=== PATIENT | female | born 1955 | race Caucasian/White ===

== ENCOUNTER 2020-09-09 11:05 | Inpatient (IN) | payer OTHER, SELFPAY ==
--- NOTE | ~2020-09-09 | CT_ITS ---
EXAMINATION: CT HEAD WITHOUT CONTRAST CLINICAL INFORMATION: Elevated blood pressure COMPARISON: None TECHNIQUE: Contiguous axial imaging was performed from the skull base to vertex without intravenous administration of contrast. Coronal and sagittal reformatted images are performed at CT scanner. This CT examination was performed using dose optimization techniques as appropriate, variously including the following: *Automated exposure control *Adjustment of mA and/or kV according to patient size (this includes techniques or standardized protocols for targeted exams where dose is matched to indication/reason for exam; i.e. extremities or head) *Use of iterative reconstruction technique DLP: 637 mGy-cm FINDINGS: There is no evidence of acute intracranial hemorrhage or territorial infarction. No abnormal mass effect or midline shift is seen. [place] to white matter differentiation is well preserved. No extra-axial fluid collections are identified. There is age-appropriate atrophy with prominence of the ventricles and the sulci and hypodensity of the periventricular white matter due to chronic small vessel ischemic disease. There are vascular calcifications of the internal carotid arteries bilaterally. The osseous structures and soft tissues are normal. The mastoid air cells and visualized portions of the paranasal sinuses are well aerated. CT/CT head/brain wo con IMPRESSION: No acute intracranial pathology.
[2020-09-09 11:19] VITALS: BP 186/114; PULSE 86; RESP 22; TEMP 37.1; O2SAT 98; BMI 19.6
[2020-09-09 11:53] LABS: MANUAL DIFF FLAG NO
[2020-09-09 11:56] LABS: Basophils Percent Auto 0.2 % (0-2); Eosinophils Percent Auto 0.4 % (0-4); Hematocrit 33.7 % (37-47); Hemoglobin 11.7 g/dl (12.0-16.0); Imm Gran Abs Auto 0.04 X10*3/uL (0.00-0.03); Imm Gran Pct Auto 0.4 % (0.0-0.4); Lymphocytes Absolute Auto 1.9 X10*3/uL (1.2-4.9); Lymphocytes Percent Auto 18.8 % (20-40); Mean Corpuscular HGB Conc 34.7 g/dl (31.0-35.0); Mean Corpuscular Hemoglobin 36.4 pg (27.0-33.0); Mean Platelet Volume 7.8 fL (9.4-12.3); Monocytes Absolute Auto 0.5 X10*3/uL (0.1-1.2); Monocytes Percent Auto 5.1 % (2-11); Neutrophils Absolute Auto 7.8 X10*3/uL (2.0-8.3); Neutrophils Percent Auto 75.1 % (45-73); Platelet Count 305 X10*3/uL (160-400); Red Blood Count 3.21 X10*6/uL (4.20-5.50); Red Cell Distribution Width 12.3 % (11.0-16.0); White Blood Count 10.3 X10*3/uL (4.8-10.8)
--- NOTE | 2020-09-09 12:10 | PC.NURSE ---
Spoke with patient's sister Nighat Olea - . Per Nighat, she brought the PT to the ED today after she was alerted from friends that the PT was talking about commiting suicide. Nighat states pt will be homeless tomorrow, and had a suicide attempt on august 06 where she ran her car in a closed garage. Nighat states that the patient chronically drinks too much alcohol, but unsure of how much patient drinks.
[2020-09-09 12:21] LABS: Ethanol 56 mg/dL
[2020-09-09 12:23] LABS: Alanine Aminotransferase 13 U/L (0-31); Albumin Level 4.7 g/dL (3.5-5.0); Alkaline Phosphatase 88 U/L (39-117); Anion Gap 16 (12-20); Aspartate Amino Transferase 24 U/L (5-31); Bilirubin Direct 0.2 mg/dL (0.0-0.5); Bilirubin Total 0.4 mg/dL (0.0-1.0); Blood Urea Nitrogen 10 mg/dL (9-16); Calcium 9.9 mg/dL (8.4-10.2); Carbon Dioxide 29 mmol/L (22-29); Chloride 92 mmol/L (96-108); Creatinine Clr Calc Pharmacy 72.7; Estimated Glomerular Filt Rate > 60; Glucose Random 89 mg/dL (60-115); Potassium 5.3 mmol/L (3.3-5.1); Sodium 132 mmol/L (135-145); Total Protein 7.7 g/dL (6.5-8.0)
[2020-09-09 13:15] LABS: Glucose Urine UA NEG (NEG); Leukocyte Esterase Urine NEG (NEG); Nitrite Urine NEG (NEG); Urine Blood NEG (NEG); Urine Ketones NEG (NEG); Urine Protein NEG (NEG-TRACE)
[2020-09-09 13:18] LABS: Appearance Urine CLEAR; Color Urine YELLOW
--- NOTE | 2020-09-09 13:33 | ED_ITS ---
HPI - Psych General Chief Complaint: Psychiatric Symptoms Stated Complaint: crisis Time Seen by Provider: 09/09/20 13:52 Source: patient Mode of arrival: ambulatory Limitations: no limitations History of Present Illness HPI Narrative: Patient presents to ED for depression. Patient brought in by sister due to patient being severely depressed and consistently crying. Patient has suicide attempt 2 weeks ago. Patient admits to trying to by running the car in the garage 2 weeks ago. Patient states she is compliant with her psych medication Related Data Home Medications Medication Instructions Recorded Confirmed fluoxetine 60 mg PO DAILY 09/09/20 09/09/20 omeprazole 40 mg PO DAILY 09/09/20 09/09/20 Allergies Allergy/AdvReac Type Severity Reaction Status Date / Time No Known Allergies Allergy Verified 09/09/20 11:37 Review of Systems Review of Systems: Yes all other systems are reviewed and are negative Constitutional: Constitutional: Reports as per HPI and Reports no additional constitutional complaints Eyes: Eyes: Reports as per HPI and Reports no additional eye complaints ENT: Reports system reviewed and no additional complaints, except as documented and Reports as per HPI Cardiovascular: Cardiovascular: Reports as per HPI and Reports no additional cardiovascular complaints Respiratory: Respiratory: Reports as per HPI and Reports no additional respiratory complaints Gastrointestinal: Gastrointestinal: Reports as per HPI and Reports no additional gastrointestinal complaints Genitourinary: Genitourinary: Reports no additional female genitourinary complaints and Reports as per HPI Musculoskeletal: Musculoskeletal: Reports no additional musculoskeletal complaints and Reports as per HPI Neurologic: Reports system reviewed and no additional complaints, except as documented and Reports as per HPI [facility] Social History Social History Advance Directives: No Advance Directives Information Provided: No Physical Exam Vital Signs: Vital Signs: Last Vital Signs Temp 98.7 F 09/09/20 11:19 Pulse 90 09/09/20 15:05 Resp 22 H 09/09/20 14:00 BP 116/77 09/09/20 15:05 Pulse Ox 98 09/09/20 11:19 Body Mass Index 19.6 Const: Other: In tears. Depressed General: cooperative, healthy appearing, comfortable, no acute distress, well developed, alert and awake Orientation/consciousness: patient oriented x3 HENMT: Head: Yes normal to inspection, Yes No palpable skull fracture present, Yes normocephalic, Yes atraumatic and No abrasion Eyes: General: appearance normal, both eyes and all related structures Neck: Neck: Yes normal visual inspection, Yes full ROM, Yes no lymphadenopathy, Yes no meningeal signs, Yes trachea midline, Yes supple and No tender Chest: Chest palpation & inspection: normal inspection of the chest and normal palpation of entire chest wall Resp: Effort & Inspection: normal respiratory effort and able to speak in complete sentences Auscultation: clear to auscultation bilaterally Cardio: Jugular venous distension: no JVD Heart sounds: S1 normal heart sound present and S2 normal heart sound present GI: Inspection: Yes normal to inspection and No abdominal wall ecchymosis Palpation (GI): Soft to palpation, not firm, nontender, no guarding and not rigid : General: No CVA tenderness and Yes no CVA tenderness Back/Spine/Pelvis: Back: no CVA tenderness, No CVA tenderness and No back tenderness Skin: General skin exam: no rashes or lesions noted and elasticity normal Neuro: General: patient oriented x3, no meningeal signs and CN's II-XI intact bilaterally Cranial nerves: Yes CN's II-XII intact bilaterally Extrem: General: Yes normal to inspection and Yes full ROM Psych: Appearance: grossly normal, well kempt and not disheveled Thought content: Suicidality present and Depressive thoughts present Course Course Course Narrative: Patient will have medical evaluation and be evaluated by N Reevaluation(s) Reevaluation #1: Patient blood pressure improved after receiving clonidine. Patient has history of high blood pressure but has not been taking her amlodopine since last year. Patient is asymptomatic. Negative for any neuro deficit. Troponin negative. Her EKG negative for STEMI and negative for signs of severe hyperkalemia. Potassium 5.3 with normal BUN creatinine. Most likely hemolyzed. No need for treatment of hyperkalemia. Discuss this with Dr. Medina who agreed. MDM - Psych MDM Narrative Medical decision making narrative: Depressed Lab Data Result diagrams: 09/09/20 11:49 09/09/20 11:49 Labs: Lab Results 09/09/20 09/09/20 09/09/20 Range/Units 11:49 11:49 11:49 WBC 10.3 (4.8-10.8) X10*3/uL RBC 3.21 L (4.20-5.50) X10*6/uL Hgb 11.7 L (12.0-16.0) g/dl Hct 33.7 L (37-47) % MCV 105.0 H (80-98) fL MCH 36.4 H (27.0-33.0) pg MCHC 34.7 (31.0-35.0) g/dl RDW 12.3 (11.0-16.0) % Plt Count 305 (160-400) X10*3/uL MPV 7.8 L (9.4-12.3) fL Immature Gran % (Auto) 0.4 (0.0-0.4) % Neut % (Auto) 75.1 H (45-73) % Lymph % (Auto) 18.8 L (20-40) % [place] % (Auto) 5.1 (2-11) % Eos % (Auto) 0.4 (0-4) % Baso % (Auto) 0.2 (0-2) % Lymph # (Auto) 1.9 (1.2-4.9) X10*3/uL [place] # (Auto) 0.5 (0.1-1.2) X10*3/uL Eos # (Auto) 0.0 (0.0-0.4) X10*3/uL Baso # (Auto) 0.0 (0.0-0.2) X10*3/uL Abs Immat Gran (auto) 0.04 H (0.00-0.03) X10*3/uL Absolute Neuts (auto) 7.8 (2.0-8.3) X10*3/uL Absolute Nucleated RBC 0.000 (0.0-0.012) X10*3/uL Nucleated RBC % (auto) 0.0 (0.0-0.2) /100WBC Sodium 132 L (135-145) mmol/L Potassium 5.3 H (3.3-5.1) mmol/L Chloride 92 L (96-108) mmol/L Carbon Dioxide 29 (22-29) mmol/L Anion Gap 16 (12-20) BUN 10 (9-16) mg/dL Creatinine 0.59 (0.5-1.4) mg/dL Estim Creat Clear Calc 72.7 Estimated GFR > 60 Random Glucose 89 (60-115) mg/dL Calcium 9.9 (8.4-10.2) mg/dL Total Bilirubin 0.4 (0.0-1.0) mg/dL Direct Bilirubin 0.2 (0.0-0.5) mg/dL AST 24 (5-31) U/L ALT 13 (0-31) U/L Alkaline Phosphatase 88 (39-117) U/L Troponin I High Sens (<3.5-17.0) ng/L Total Protein 7.7 (6.5-8.0) g/dL Albumin 4.7 (3.5-5.0) g/dL Urine Color Urine Appearance Urine pH (5.0-8.0) Ur Specific [place] (1.005-1.025) Urine Protein (NEG-TRACE) MG/DL Urine Glucose (UA) (NEG) MG/DL Urine Ketones (NEG) MG/DL Urine Blood (NEG) Urine Nitrite (NEG) Ur Leukocyte Esterase (NEG) Urine Opiates Screen (Not Detect) Ur Barbiturates Screen (Not Detect) Ur Phencyclidine Scrn (Not Detect) Ur Amphetamines Screen (Not Detect) U Benzodiazepines Scrn (Not Detect) Urine Cocaine Screen (Not Detect) U Marijuana (THC) Screen (Not Detect) Ethyl Alcohol 56 mg/dL 09/09/20 09/09/20 09/09/20 Range/Units 13:01 13:01 14:24 WBC (4.8-10.8) X10*3/uL RBC (4.20-5.50) X10*6/uL Hgb (12.0-16.0) g/dl Hct (37-47) % MCV (80-98) fL MCH (27.0-33.0) pg MCHC (31.0-35.0) g/dl RDW (11.0-16.0) % Plt Count (160-400) X10*3/uL MPV (9.4-12.3) fL Immature Gran % (Auto) (0.0-0.4) % Neut % (Auto) (45-73) % Lymph % (Auto) (20-40) % [place] % (Auto) (2-11) % Eos % (Auto) (0-4) % Baso % (Auto) (0-2) % Lymph # (Auto) (1.2-4.9) X10*3/uL [place] # (Auto) (0.1-1.2) X10*3/uL Eos # (Auto) (0.0-0.4) X10*3/uL Baso # (Auto) (0.0-0.2) X10*3/uL Abs Immat Gran (auto) (0.00-0.03) X10*3/uL Absolute Neuts (auto) (2.0-8.3) X10*3/uL Absolute Nucleated RBC (0.0-0.012) X10*3/uL Nucleated RBC % (auto) (0.0-0.2) /100WBC Sodium (135-145) mmol/L Potassium (3.3-5.1) mmol/L Chloride (96-108) mmol/L Carbon Dioxide (22-29) mmol/L Anion Gap (12-20) BUN (9-16) mg/dL Creatinine (0.5-1.4) mg/dL Estim Creat Clear Calc Estimated GFR Random Glucose (60-115) mg/dL Calcium (8.4-10.2) mg/dL Total Bilirubin (0.0-1.0) mg/dL Direct Bilirubin (0.0-0.5) mg/dL AST (5-31) U/L ALT (0-31) U/L Alkaline Phosphatase (39-117) U/L Troponin I High Sens < 3.5 (<3.5-17.0) ng/L Total Protein (6.5-8.0) g/dL Albumin (3.5-5.0) g/dL Urine Color YELLOW Urine Appearance CLEAR Urine pH 7.0 (5.0-8.0) Ur Specific [place] 1.010 (1.005-1.025) Urine Protein NEG (NEG-TRACE) MG/DL Urine Glucose (UA) NEG (NEG) MG/DL Urine Ketones NEG (NEG) MG/DL Urine Blood NEG (NEG) Urine Nitrite NEG (NEG) Ur Leukocyte Esterase NEG (NEG) Urine Opiates Screen Not Detected (Not Detect) Ur Barbiturates Screen Not Detected (Not Detect) Ur Phencyclidine Scrn Not Detected (Not Detect) Ur Amphetamines Screen Not Detected (Not Detect) U Benzodiazepines Scrn POSITIVE H (Not Detect) Urine Cocaine Screen Not Detected (Not Detect) U Marijuana (THC) Screen Not Detected (Not Detect) Ethyl Alcohol mg/dL Discharge Plan Discharge Prescriptions: No Action omeprazole 40 mg Capsule,Delayed Release(Dr/Ec) 40 mg PO DAILY RF: 0 fluoxetine 60 mg Tablet 60 mg PO DAILY RF: 0
--- NOTE | 2020-09-09 13:36 | ECG_ITS ---
Test Reason : ELEVATED POTASSIUM Blood Pressure : / mmHG Vent. Rate : 082 BPM Atrial Rate : 082 BPM P-R Int : 156 ms QRS Dur : 076 ms QT Int : 394 ms P-R-T Axes : 063 035 061 degrees QTc Int : 460 ms Normal sinus rhythm Possible Left atrial enlargement Borderline ECG No previous ECGs available Referred By: Vernon Echeverria Electronically Signed By:
[2020-09-09 13:40] LABS: Amphetamine Screen Urine Not Detected (Not Detect); Barbiturates, Urine Not Detected (Not Detect); Benzodiazepines Screen Urine POSITIVE (Not Detect); Cannabinoid Screen Urine Not Detected (Not Detect); Cocaine Screen Urine Not Detected (Not Detect); Opiate Screen Urine Not Detected (Not Detect); Phencyclidine Screen Urine Not Detected (Not Detect)
[2020-09-09 14:00] VITALS: BP 215/107; PULSE 71; RESP 22
[2020-09-09 14:13] VITALS: BP 215/107; PULSE 71
[2020-09-09] MEDS: cloNIDine HCL 0.2 MG TABLET PO (14:13)
--- NOTE | 2020-09-09 14:29 | PC.NURSE ---
Pt's blood pressure 215/107. PA January aware. New order for 0.2mg Clonidine ordered for patient. New order for troponin drawn. Pt tearful, denies chest discomfort at this time. Will continue to monitor.
[2020-09-09 15:00] LABS: Troponin-I High Sensitivity < 3.5 ng/L (<3.5-17.0)
[2020-09-09 15:05] VITALS: BP 116/77; PULSE 90
[2020-09-09 18:47] VITALS: BP 132/83; PULSE 76; RESP 15; TEMP 36.9; O2SAT 100
--- NOTE | 2020-09-09 19:32 | PC.NURSE ---
Report received. PT is sitting in her room visiting with her sister. PT is calm but tearful. PT waiting to be seen by N.
--- NOTE | 2020-09-09 22:10 | PC.NURSE ---
PT's sister came to visit and wait for BHN evaluation. BHN did not arrive at expected time. Sister left a list with this nurse that track the events and behaviors of the PT over the past few months. List was placed in PT's file.
[2020-09-10 02:20] VITALS: BP 127/82; PULSE 75; RESP 18; TEMP 35.7; O2SAT 100
[2020-09-10 02:21] LABS: COVID-19 Test Negative (Negative)
[2020-09-10] MEDS: Omeprazole 40 MG CAPSULE.DR PO (06:18)
--- NOTE | 2020-09-10 07:19 | PC.NURSE ---
Report received from Erich SKINNER. Pt ambulatory, flat affect, asking about breakfast. In-pt bedsearch.
[2020-09-10 08:14] VITALS: BP 143/92; PULSE 89; RESP 18; TEMP 36.8; O2SAT 100
[2020-09-10] MEDS: FLUoxetine HCl 20 MG CAPSULE 60 MG PO (10:12)
--- NOTE | 2020-09-10 10:14 | PC.NURSE ---
Pt medicated as charted with morning med. This RN spoke with pt's sister Nighat with the pt's permission. Nighat updated on plan of care phone number , requesting to be called with updates.
[2020-09-10] MEDS: Acetaminophen 325 MG TABLET 975 MG PO (17:46)
[2020-09-10] MEDS: hydrOXYzine HCL 25 MG TABLET PO (20:49)
[2020-09-10] MEDS: traZODone HCL 50 MG TABLET PO (20:49)
[2020-09-10 21:48] VITALS: BP 136/84; PULSE 77; RESP 16; TEMP 36.8; O2SAT 100
--- NOTE | 2020-09-10 21:51 | PC.ADMIT ---
Pt is a 65 year old, , Tajik speaking female who appears her stated age. She presented to [facility] secondary to endorsing suicidal ideation to her family. Pt reported that she had a suicide attempt a few weeks ago, in which she sat in her garage with her car running to obtain carbon monoxide poisoning. Pt reports she is extremely depressed and stated she has been having suicidal thoughts. Pt has been recently evicted from her home and is financially unstable. Pt arrived at approx 1955 on a CV status. Pt is Covid negative UTOX positive for Benzos, pt BAL was 56. Pt on CIWA and scoring low. Pt denies withdrawals. Pt denies history of detox admissions or previous psych admissions. Pt has no current outpatient community services. Pt denies traums history. In crisis evaluation pt's brother committed suicide 20 years ago. Pt is aware of her suicide attempt and is happy she survived. Pt denies SI/HI, AH/VH. Pt contracts for safety. 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 Pt on 5 min checks with unlocked bathroom. pt was cooperative with admission and nursing assessment. Pt is tearful and appears depressed. Pt affect flat and appears withdrawn throughout assessment. Pt skin is fragile and has bruising on both upper extremities. Pt reports a double mastectomy 20 years ago. BP left arm only. Pt was very anxious upon arrival to unit blood pressure was elevated. Pt given PRN Atarax and Trazodone and BP was rechecked and was within normal limits. Start treatment plan and monitor for safety.
--- NOTE | 2020-09-11 | ECG_ITS ---
Test Reason : QTC PROLONGATION Blood Pressure : / mmHG Vent. Rate : 088 BPM Atrial Rate : 088 BPM P-R Int : 208 ms QRS Dur : 078 ms QT Int : 370 ms P-R-T Axes : 044 039 062 degrees QTc Int : 447 ms Normal sinus rhythm Normal ECG When compared with ECG of 09-SEP-2020 13:58, Nonspecific T wave abnormality no longer evident in Inferior leads T wave amplitude has increased in Anterior leads Referred By: Catalina Thomas Electronically Signed By:RYAN BOCANEGRA MD
[2020-09-11 06:16] VITALS: BP 124/83; PULSE 79; RESP 18; TEMP 36.3; O2SAT 100
[2020-09-11] MEDS: Omeprazole 40 MG CAPSULE.DR PO (06:36)
[2020-09-11] MEDS: FLUoxetine HCl 20 MG CAPSULE 60 MG PO (09:45)
[2020-09-11] MEDS: LORazepam 1 MG TABLET PO ×2 (09:59→14:47)
[2020-09-11 14:14] LABS: Alanine Aminotransferase 15 U/L (0-31); Albumin Level 4.5 g/dL (3.5-5.0); Alkaline Phosphatase 85 U/L (39-117); Anion Gap 18 (12-20); Aspartate Amino Transferase 34 U/L (5-31); Bilirubin Total 0.4 mg/dL (0.0-1.0); Blood Urea Nitrogen 11 mg/dL (9-16); Calcium 9.8 mg/dL (8.4-10.2); Carbon Dioxide 24 mmol/L (22-29); Chloride 95 mmol/L (96-108); Creatinine Clr Calc Pharmacy 63.9; Estimated Glomerular Filt Rate > 60; Glucose Random 108 mg/dL (60-115); Sodium 131 mmol/L (135-145); Total Protein 7.8 g/dL (6.5-8.0)
[2020-09-11] MEDS: Sodium Polystyrene Sulfon/Sorb 15 GM/60 ML ORAL.SUSP 30 GM PO (14:42)
[2020-09-11 15:51] LABS: Magnesium 1.9 mg/dL (1.6-2.6); Potassium 4.6 mmol/L (3.3-5.1)
[2020-09-11] MEDS: Acetaminophen 325 MG TABLET 650 MG PO (15:53)
[2020-09-11 16:36] VITALS: BP 126/80; PULSE 90; RESP 16; TEMP 36.8; O2SAT 97
[2020-09-11] MEDS: Folic Acid 1 MG TABLET PO (19:58)
[2020-09-11] MEDS: Thiamine HCL 100 MG TABLET PO (19:58)
--- NOTE | 2020-09-11 20:20 | P.HPPS_ITS ---
HPI Chief Complaint: SUICIDAL IDEATION Sources of Information: patient interviewed, chart reviewed and crisis/core team assessment reviewed HPI Subjective Notes: Conditional Voluntary Narrative: Ms. Olea is a 65 year-old woman with hx of MDD and alcohol dependence. She was brought to [place] ED by sister on 09/09/2020 due to increase depression, suicidal ideation, hopeless/helpeless in context of psychosocial stressors including not having stable place to live. In the ED, her utox was positive for benzodiazepines. Her BAL was 56. Ms. Olea was recently discharged from [facility] in 07/2020 after suicide attempt with carbon monoxide. Pt reports that suicide attempt was impulsive, that she went to her car and turn it on but quickly regret it but couldn't stop the car so she pulled back and broke garage door. Per crisis report, pt had sent messages to sister on 08/24, 09/07 and 09/09 reporting suicidal ideation. On the unit, pt denies alcohol use or that it is a problem, even though she was recently sectioned 35 in April of 2020 and per sister, pt has extensive alcohol history since pt was 18. Pt reports that for 5 years she lived in apartment that she rented but was asked to leave. She can't explain reasons for eviction from apartment. She reports she had roommate at the time and she thinks roommate lied about her to her landlord. Pt on unit states that she is depressed, hopeless but denies suicidal ideation. She reports her main concern at this time is housing. She reports fair sleep. She reports fair appetite. She appears somewhat suspicious about a number of people in her life including most of her siblings, except for one sister, her former roommate, who pt reports thinks put something in her car/gas to brake it. Pt appears with some memory difficulties as she struggled with timeline of events leading to this admission and previous one. She denies hx of VH/AH. Past Psychiatric History: Inpatient: [place] 07/2020 OP: none Past medication trial: prozavictor hugo Suicide attempt: attempted carbon monoxide poisoning 07/2020 but stopped. Medical Evaluation Reviewed: Yes [facility] Surgical History (Updated 09/10/20 @ 20:30 by Joy Allen RN) H/O bilateral mastectomy Family History: brother of suicide Social History: born and raise in [place]. She is , no children. She has been on disability for more than 20 years apparently due to osteoarthritis. Pt has MA in education. 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 Substance History: Alcohol since age 18 Trauma History: pt and family denied Diagnostics Vital Signs (24Hr): Vital Signs - 24 hr 09/10/20 21:48 09/11/20 06:16 09/11/20 16:36 Temperature 98.2 F 97.4 F 98.2 F Pulse Rate 77 79 90 Respiratory Rate 16 18 16 Blood Pressure 136/84 124/83 126/80 Pulse Oximetry 100 100 97 Body Mass Index 19.6 Labs Results: 09/09/20 11:49 09/11/20 15:11 Labs: Laboratory Results - last 48 hr 09/10/20 09/11/20 09/11/20 01:59 13:15 15:11 Sodium 131 L Potassium 6.0 H* 4.6 D Chloride 95 L Carbon Dioxide 24 Anion Gap 18 BUN 11 Creatinine 0.67 Estim Creat Clear Calc 63.9 Estimated GFR > 60 Random Glucose 108 Calcium 9.8 Magnesium 1.9 Total Bilirubin 0.4 AST 34 H D ALT 15 Alkaline Phosphatase 85 Total Protein 7.8 Albumin 4.5 COVID-19 (MARY) Negative COVID-19 Clin Com See Note Imaging Radiology Impressions: ITS Impressions Head CT 09/09/20 15:19 IMPRESSION: No acute intracranial pathology. Meds/Allergies Meds Home Medications Acetaminophen (Acetaminophen 325 Mg Tablet) 650 mg PO Q6H PRN PRN Reason: Headache/Pain Mild Scale (1-3) Last Admin: 09/11/20 15:53 Dose: 650 mg Documented by: Al Hydroxide/Mg Hydroxide (Magnesium Hydrox/Alum Hydrox 30 Ml Oral.Susp) 30 ml PO Q6H PRN PRN Reason: Heartburn/Nausea Fluoxetine HCl (Fluoxetine Hcl 20 Mg Capsule) 40 mg PO DAILY [facility] Last Admin: 09/12/20 09:30 Dose: 40 mg Documented by: Folic Acid (Folic Acid 1 Mg Tablet) 1 mg PO DAILY [facility] Last Admin: 09/12/20 09:30 Dose: 1 mg Documented by: Gabapentin (Gabapentin 300 Mg Capsule) 300 mg PO TID [facility] Last Admin: 09/12/20 16:11 Dose: 300 mg Documented by: Hydroxyzine HCl (Hydroxyzine Hcl 25 Mg Tablet) 25 mg PO BEDTIME PRN PRN Reason: Anxiety Last Admin: 09/10/20 20:49 Dose: 25 mg Documented by: Loperamide HCl (Loperamide Hcl 2 Mg Capsule) 2 mg PO Q4H PRN PRN Reason: Loose Stool Last Admin: 09/11/20 21:36 Dose: 2 mg Documented by: Lorazepam (Lorazepam 1 Mg Tablet) 1 mg PO Q4H PRN PRN Reason: Alcohol Withdrawal Last Admin: 09/12/20 09:30 Dose: 1 mg Documented by: Magnesium Hydroxide (Milk Of Magnesia 30 Ml Oral.Susp) 30 ml PO DAILY PRN PRN Reason: Constipation Omeprazole (Omeprazole 40 Mg Capsule.Dr) 40 mg PO DAILY@0630 [facility] Last Admin: 09/12/20 06:39 Dose: 40 mg Documented by: Thiamine HCl (Thiamine Hcl 100 Mg Tablet) 100 mg PO DAILY [facility] Last Admin: 09/12/20 09:30 Dose: 100 mg Documented by: Trazodone HCl (Trazodone Hcl 50 Mg Tablet) 50 mg PO BEDTIME PRN PRN Reason: Insomnia Last Admin: 09/11/20 21:33 Dose: 50 mg Documented by: Allergies Allergies Allergy/AdvReac Type Severity Reaction Status Date / Time No Known Allergies Allergy Verified 09/09/20 11:37 Mental Status Exam Mental Status Exam Narrative: Appearance: casually groomed, fair hygiene, in NAD Behavior: calm, cooperative Psychomotor: no agitation or retardation noted Speech: clear, normal rate/rhythm/volume, spontaneous TP: tangential TC: no signs of psychosis, some suspiciousness towards past roommate, wanting to find housing Mood: depressed Affect:constricted SI:denies HI:denies AH/VH:denies Delusions:some paranoia towards roommate and other family members Insight/judgment:poor x 2. Memory/cog: alert, oriented x 3. pending MOCA. Assessment & Plan Assessment & Plan (1) MDD (major depressive disorder), recurrent episode, moderate: Status: Acute Code(s): F33.1 - Major depressive disorder, recurrent, moderate Assessment and Plan: 1. We discussed possibility of switching to different antidepressant since pt has been on prozac for a long time. (2) Alcohol use disorder, moderate, dependence: Status: Acute Code(s): F10.20 - Alcohol dependence, uncomplicated Assessment and Plan: 1. Pt started on gabapentin 300mg po TID, ativan prn for symptoms of withdrawal, thiamine and folic acid. Reason for continued inpatient stay Substantial Risk for: harm to self
[2020-09-11] MEDS: Gabapentin 300 MG CAPSULE PO (21:33)
[2020-09-11] MEDS: traZODone HCL 50 MG TABLET PO (21:33)
[2020-09-11] MEDS: Loperamide HCl 2 MG CAPSULE PO (21:36)
[2020-09-12 06:00] VITALS: BP 121/78; PULSE 82; TEMP 36.2
[2020-09-12] MEDS: Omeprazole 40 MG CAPSULE.DR PO (06:39)
[2020-09-12] MEDS: FLUoxetine HCl 20 MG CAPSULE 40 MG PO (09:30)
[2020-09-12] MEDS: LORazepam 1 MG TABLET PO ×2 (09:30→22:15)
[2020-09-12] MEDS: Gabapentin 300 MG CAPSULE PO ×3 (09:30→22:15)
[2020-09-12] MEDS: Thiamine HCL 100 MG TABLET PO (09:30)
[2020-09-12] MEDS: Folic Acid 1 MG TABLET PO (09:30)
[2020-09-12 09:39] LABS: Cholesterol 263 mg/dL; HDL Cholesterol 55 mg/dL; LDL Cholesterol Calculated 189 mg/dl; Triglycerides 99 mg/dL
[2020-09-12 09:59] LABS: TSH reflex Free T4 0.94 uIU/mL (0.32-4.0)
[2020-09-12 10:13] LABS: Estimated Average Glucose 80 mg/dL; Hemoglobin A1c % 4.4 %
[2020-09-12 11:00] VITALS: BP 133/87; RESP 84
[2020-09-12 11:21] LABS: Folate > 20.0 ng/mL (> or = 4.0); Vitamin B12 291 pg/mL (200-900)
--- NOTE | 2020-09-12 16:43 | HO.PSYCHPN ---
Subjective Subjective Date of Service: 09/12/20 Reason For Visit: SUICIDAL IDEATION Subjective Notes: Conditional Voluntary Interim History: Pt reports she slept well. She reports mood stable. She denies SI/HI. She reports her main concern continues to be housing. She continues to show limited insight into extend of alcohol use. She is currently not scoring on CIWA. MOCA completed today- she scored 28/30- difficulty with serial sevens and placing hands of clock. Medication Compliance: Yes Side effects from medications: No Review of Systems Review of Systems Yes all other systems are reviewed and are negative Constitutional: Reports as per HPI and Reports no additional constitutional complaints Eyes: Reports as per HPI and Reports no additional eye complaints Reports system reviewed and no additional complaints, except as documented and Reports as per HPI Cardiovascular: Reports as per HPI, Reports no additional cardiovascular complaints, Denies chest pain, Denies syncope, Denies palpitations, Denies dyspnea and Denies dyspnea on exertion Respiratory: Reports as per HPI, Reports no additional respiratory complaints, Denies chest congestion, Denies cough, Denies dyspnea and Denies dyspnea on exertion Gastrointestinal: Reports as per HPI, Reports no additional gastrointestinal complaints, Denies constipation and Reports diarrhea Musculoskeletal: Denies no additional musculoskeletal complaints and Reports as per HPI Reports system reviewed and no additional complaints, except as documented, Reports as per HPI and Denies syncope Endocrine: Denies palpitations Mental Status Exam Mental Status Exam Narrative: Appearance: casually groomed, fair hygiene, in NAD Behavior: calm, cooperative Psychomotor: no agitation or retardation noted Speech: clear, normal rate/rhythm/volume, spontaneous TP: tangential TC: no signs of psychosis, some suspiciousness towards past roommate, wanting to find housing Mood: depressed Affect:constricted SI:denies HI:denies AH/VH:denies Delusions:some paranoia towards roommate and other family members Insight/judgment:poor x 2. Memory/cog: alert, oriented x 3. pending MOCA. Diagnostics Vital Signs (24Hr): Vital Signs - 24 hr 09/12/20 06:00 Temperature 97.2 F Pulse Rate 82 Blood Pressure 121/78 Body Mass Index 19.6 Labs Results: 09/09/20 11:49 09/11/20 15:11 Labs: Laboratory Results - last 48 hr 09/11/20 09/11/20 09/12/20 13:15 15:11 08:47 Sodium 131 L Potassium 6.0 H* 4.6 D Chloride 95 L Carbon Dioxide 24 Anion Gap 18 BUN 11 Creatinine 0.67 Estim Creat Clear Calc 63.9 Estimated GFR > 60 Random Glucose 108 Estimat Average Glucose Hemoglobin A1c % Calcium 9.8 Magnesium 1.9 Total Bilirubin 0.4 AST 34 H D ALT 15 Alkaline Phosphatase 85 Total Protein 7.8 Albumin 4.5 Triglycerides 99 Cholesterol 263 LDL Cholesterol, Calc 189 HDL Cholesterol 55 Vitamin B12 Folate TSH 09/12/20 09/12/20 09/12/20 08:47 08:47 08:47 Sodium Potassium Chloride Carbon Dioxide Anion Gap BUN Creatinine Estim Creat Clear Calc Estimated GFR Random Glucose Estimat Average Glucose 80 Hemoglobin A1c % 4.4 Calcium Magnesium Total Bilirubin AST ALT Alkaline Phosphatase Total Protein Albumin Triglycerides Cholesterol LDL Cholesterol, Calc HDL Cholesterol Vitamin B12 291 Folate > 20.0 TSH 0.94 Imaging Radiology Impressions: ITS Impressions Head CT 09/09/20 15:19 IMPRESSION: No acute intracranial pathology. Medications Medications Current Medications Generic Name Dose Route Start Last Admin Trade Name Freq PRN Reason Stop Dose Admin Acetaminophen 650 mg 09/10/20 19:32 09/11/20 15:53 Acetaminophen 325 Mg Tablet PO 650 mg Q6H PRN Administration Headache/Pain Mild Scale (1-3) Al Hydroxide/Mg Hydroxide 30 ml 09/10/20 19:32 Magnesium Hydrox/Alum Hydrox 30 Ml Oral.Susp PO Q6H PRN Heartburn/Nausea Fluoxetine HCl 40 mg 09/12/20 09:00 09/12/20 09:30 Fluoxetine Hcl 20 Mg Capsule PO 40 mg DAILY SARA Administration Folic Acid 1 mg 09/11/20 17:29 09/12/20 09:30 Folic Acid 1 Mg Tablet PO 1 mg DAILY SARA Administration Gabapentin 300 mg 09/11/20 21:00 09/12/20 16:11 Gabapentin 300 Mg Capsule PO 300 mg TID SARA Administration Hydroxyzine HCl 25 mg 09/10/20 19:32 09/10/20 20:49 Hydroxyzine Hcl 25 Mg Tablet PO 25 mg BEDTIME PRN Administration Anxiety Loperamide HCl 2 mg 09/11/20 16:39 09/11/20 21:36 Loperamide Hcl 2 Mg Capsule PO 2 mg Q4H PRN Administration Loose Stool Lorazepam 1 mg 09/10/20 22:19 09/12/20 09:30 Lorazepam 1 Mg Tablet PO 1 mg Q4H PRN Administration Alcohol Withdrawal Magnesium Hydroxide 30 ml 09/10/20 19:32 Milk Of Magnesia 30 Ml Oral.Susp PO DAILY PRN Constipation Omeprazole 40 mg 09/10/20 06:30 09/12/20 06:39 Omeprazole 40 Mg Capsule.Dr PO 40 mg DAILY@0630 SARA Administration Thiamine HCl 100 mg 09/11/20 17:30 09/12/20 09:30 Thiamine Hcl 100 Mg Tablet PO 100 mg DAILY SARA Administration Trazodone HCl 50 mg 09/10/20 19:32 09/11/20 21:33 Trazodone Hcl 50 Mg Tablet PO 50 mg BEDTIME PRN Administration Insomnia Allergies Allergies Allergy/AdvReac Type Severity Reaction Status Date / Time No Known Allergies Allergy Verified 09/09/20 11:37 Assessment & Plan Assessment & Plan (1) MDD (major depressive disorder), recurrent episode, moderate: Status: Acute Code(s): F33.1 - Major depressive disorder, recurrent, moderate Assessment and Plan: 1. We discussed possibility of switching to different antidepressant since pt has been on prozac for a long time. Pt wants to continue prozac and agrees to add abilify which could help not only to boost effect of antidepressant but some paranoid thoughts. (2) Alcohol use disorder, moderate, dependence: Status: Acute Code(s): F10.20 - Alcohol dependence, uncomplicated Assessment and Plan: 1. Pt started on gabapentin 300mg po TID, ativan prn for symptoms of withdrawal, thiamine and folic acid. Greater than 50% of the session was spent on counseling and/or coordination of care Reason for contiued inpatient stay Substantial Risk for: harm to self and inability to function
[2020-09-12] MEDS: Acetaminophen 325 MG TABLET 650 MG PO (17:12)
[2020-09-12 18:00] VITALS: BP 165/90; PULSE 87
[2020-09-12 18:13] LABS: Alanine Aminotransferase 13 U/L (0-31); Albumin Level 4.2 g/dL (3.5-5.0); Alkaline Phosphatase 81 U/L (39-117); Anion Gap 13 (12-20); Aspartate Amino Transferase 27 U/L (5-31); Bilirubin Total 0.4 mg/dL (0.0-1.0); Blood Urea Nitrogen 10 mg/dL (9-16); Calcium 9.4 mg/dL (8.4-10.2); Carbon Dioxide 28 mmol/L (22-29); Chloride 93 mmol/L (96-108); Estimated Glomerular Filt Rate > 60; Glucose Random 108 mg/dL (60-115); Potassium 4.5 mmol/L (3.3-5.1); Sodium 129 mmol/L (135-145); Total Protein 7.2 g/dL (6.5-8.0)
[2020-09-13 06:15] VITALS: BP 125/71; PULSE 70; RESP 14; TEMP 36.3; O2SAT 100
[2020-09-13] MEDS: Omeprazole 40 MG CAPSULE.DR PO (06:46)
[2020-09-13] MEDS: Thiamine HCL 100 MG TABLET PO (08:48)
[2020-09-13] MEDS: FLUoxetine HCl 20 MG CAPSULE 40 MG PO (08:48)
[2020-09-13] MEDS: Gabapentin 300 MG CAPSULE PO ×3 (08:48→20:11)
[2020-09-13] MEDS: Folic Acid 1 MG TABLET PO (08:48)
[2020-09-13 11:29] LABS: Anion Gap 9 (12-20); Carbon Dioxide 34 mmol/L (22-29); Chloride 95 mmol/L (96-108); Potassium 3.9 mmol/L (3.3-5.1); Sodium 134 mmol/L (135-145)
[2020-09-13 11:33] VITALS: BP 141/93; PULSE 82; RESP 18; TEMP 36.6; O2SAT 98
[2020-09-13] MEDS: Acetaminophen 325 MG TABLET 650 MG PO ×2 (15:32→21:41)
[2020-09-13 15:35] VITALS: BP 128/94; PULSE 86; RESP 18; TEMP 37
[2020-09-13] MEDS: traZODone HCL 50 MG TABLET PO (20:12)
[2020-09-13 20:20] VITALS: BP 140/95; PULSE 80; TEMP 37
--- NOTE | 2020-09-13 20:45 | HO.PSYCHPN ---
Subjective Subjective Date of Service: 09/13/20 Reason For Visit: SUICIDAL IDEATION Subjective Notes: Conditional Voluntary Interim History: Yamel was focused on whether she should change her fluoxetine. She was in mild alcohol WD but understates her difficutly with alcohol. Sodium was normalized at 134 Medication Compliance: Yes Side effects from medications: No Attending Groups: Intermittent Review of Systems Acute medical concerns: No Medical Review of Systems: unchanged Review of Systems Review of Systems Yes all other systems are reviewed and are negative Mental Status Exam Mental Status Exam Patient Appearance: Well Grooomed Level of Consciousness: Awake Patient Behavior: Appropriate Mood Description: Calm, Constricted and Anxious Affect Description: Anxious Patient Cognition Impaired: No Ability to Follow Directions: Fair Speech Pattern: Clear Memory Description: Intact Hallucinations: None Delusions: Not Present Thought Process: Intact Thought Content: positive for Circumstantial and positive for Preoccupation Depressive Symptoms: Increased Anxiety, Insomnia, Diff. Making Decisions, Low Self Esteem, Loss of Energy and Difficulty Concentrating Judgement: Fair Diagnostics Vital Signs (24Hr): Vital Signs - 24 hr 09/13/20 06:15 09/13/20 11:33 09/13/20 15:35 Temperature 97.4 F 97.8 F 98.6 F Pulse Rate 70 82 86 Respiratory Rate 14 18 18 Blood Pressure 125/71 141/93 H 128/94 H Pulse Oximetry 100 98 Body Mass Index 19.6 Labs Results: 09/09/20 11:49 09/13/20 07:36 Labs: Laboratory Results - last 48 hr 09/12/20 09/12/20 09/12/20 08:47 08:47 08:47 Sodium Potassium Chloride Carbon Dioxide Anion Gap BUN Creatinine Estim Creat Clear Calc Estimated GFR Random Glucose Estimat Average Glucose 80 Hemoglobin A1c % 4.4 Calcium Total Bilirubin AST ALT Alkaline Phosphatase Total Protein Albumin Triglycerides 99 Cholesterol 263 LDL Cholesterol, Calc 189 HDL Cholesterol 55 Vitamin B12 291 Folate > 20.0 TSH 09/12/20 09/12/20 09/13/20 08:47 17:33 07:36 Sodium 129 L 134 L Potassium 4.5 3.9 Chloride 93 L 95 L Carbon Dioxide 28 34 H Anion Gap 13 9 L BUN 10 Creatinine 0.65 Estim Creat Clear Calc 66.0 Estimated GFR > 60 Random Glucose 108 Estimat Average Glucose Hemoglobin A1c % Calcium 9.4 Total Bilirubin 0.4 AST 27 ALT 13 Alkaline Phosphatase 81 Total Protein 7.2 Albumin 4.2 Triglycerides Cholesterol LDL Cholesterol, Calc HDL Cholesterol Vitamin B12 Folate TSH 0.94 Imaging Radiology Impressions: ITS Impressions Head CT 09/09/20 15:19 IMPRESSION: No acute intracranial pathology. Medications Medications Current Medications Generic Name Dose Route Start Last Admin Trade Name Charanjitq PRN Reason Stop Dose Admin Acetaminophen 650 mg 09/10/20 19:32 09/13/20 15:32 Acetaminophen 325 Mg Tablet PO 650 mg Q6H PRN Administration Headache/Pain Mild Scale (1-3) Al Hydroxide/Mg Hydroxide 30 ml 09/10/20 19:32 Magnesium Hydrox/Alum Hydrox 30 Ml Oral.Susp PO Q6H PRN Heartburn/Nausea Fluoxetine HCl 40 mg 09/12/20 09:00 09/13/20 08:48 Fluoxetine Hcl 20 Mg Capsule PO 40 mg DAILY SARA Administration Folic Acid 1 mg 09/11/20 17:29 09/13/20 08:48 Folic Acid 1 Mg Tablet PO 1 mg DAILY SARA Administration Gabapentin 300 mg 09/11/20 21:00 09/13/20 20:11 Gabapentin 300 Mg Capsule PO 300 mg TID SARA Administration Hydroxyzine HCl 25 mg 09/10/20 19:32 09/10/20 20:49 Hydroxyzine Hcl 25 Mg Tablet PO 25 mg BEDTIME PRN Administration Anxiety Loperamide HCl 2 mg 09/11/20 16:39 09/11/20 21:36 Loperamide Hcl 2 Mg Capsule PO 2 mg Q4H PRN Administration Loose Stool Lorazepam 1 mg 09/10/20 22:19 09/12/20 22:15 Lorazepam 1 Mg Tablet PO 1 mg Q4H PRN Administration Alcohol Withdrawal Magnesium Hydroxide 30 ml 09/10/20 19:32 Milk Of Magnesia 30 Ml Oral.Susp PO DAILY PRN Constipation Omeprazole 40 mg 09/10/20 06:30 09/13/20 06:46 Omeprazole 40 Mg Capsule.Dr PO 40 mg DAILY@0630 SARA Administration Thiamine HCl 100 mg 09/11/20 17:30 09/13/20 08:48 Thiamine Hcl 100 Mg Tablet PO 100 mg DAILY SARA Administration Trazodone HCl 50 mg 09/10/20 19:32 09/13/20 20:12 Trazodone Hcl 50 Mg Tablet PO 50 mg BEDTIME PRN Administration Insomnia Allergies Allergies Allergy/AdvReac Type Severity Reaction Status Date / Time No Known Allergies Allergy Verified 09/09/20 11:37 Assessment & Plan Assessment & Plan (1) Alcohol use disorder, moderate, dependence: Status: Acute Code(s): F10.20 - Alcohol dependence, uncomplicated (2) MDD (major depressive disorder), recurrent episode, moderate: Status: Acute Code(s): F33.1 - Major depressive disorder, recurrent, moderate Assessment and Plan: CT CIWA and ativan prn CT Tx plan unchanged Greater than 50% of the session was spent on counseling and/or coordination of care Reason for contiued inpatient stay Substantial Risk for: inability to function and rapid decompensation
[2020-09-14] MEDS: Omeprazole 40 MG CAPSULE.DR PO (06:39)
[2020-09-14 06:40] VITALS: BP 110/65; PULSE 69; RESP 16; TEMP 36.3; O2SAT 98
[2020-09-14] MEDS: Thiamine HCL 100 MG TABLET PO (08:27)
[2020-09-14] MEDS: FLUoxetine HCl 20 MG CAPSULE 40 MG PO (08:27)
[2020-09-14] MEDS: Gabapentin 300 MG CAPSULE PO ×3 (08:27→20:37)
[2020-09-14] MEDS: Folic Acid 1 MG TABLET PO (08:27)
[2020-09-14] MEDS: Acetaminophen 325 MG TABLET 650 MG PO ×2 (09:34→16:37)
[2020-09-14 16:20] VITALS: BP 143/84; PULSE 73; TEMP 36.7
--- NOTE | 2020-09-14 17:13 | HO.PSYCHPN ---
Subjective Subjective Date of Service: 09/14/20 Reason For Visit: SUICIDAL IDEATION Interim History: Yamel was focused on whether she should change her fluoxetine and wanted to add what that other doctor wanted to do . She was referred to Catalina Thomas to discuss this in am. She was in mild alcohol WD but understates her difficultly with alcohol. Sodium was normalized at 134 She was interacting with her peers and her main concern is where she will live when she is [place]. Medication Compliance: Yes Side effects from medications: No Attending Groups: Yes Review of Systems Acute medical concerns: No Medical Review of Systems: unchanged Review of Systems Review of Systems Yes all other systems are reviewed and are negative Constitutional: Reports as per HPI and Reports no additional constitutional complaints Eyes: Reports as per HPI and Reports no additional eye complaints Reports system reviewed and no additional complaints, except as documented and Reports as per HPI Cardiovascular: Reports as per HPI, Reports no additional cardiovascular complaints, Denies chest pain, Denies syncope, Denies palpitations, Denies dyspnea and Denies dyspnea on exertion Respiratory: Reports as per HPI, Reports no additional respiratory complaints, Denies chest congestion, Denies cough, Denies dyspnea and Denies dyspnea on exertion Gastrointestinal: Reports as per HPI, Reports no additional gastrointestinal complaints, Denies constipation and Reports diarrhea Musculoskeletal: Denies no additional musculoskeletal complaints and Reports as per HPI Reports system reviewed and no additional complaints, except as documented, Reports as per HPI and Denies syncope Endocrine: Denies palpitations Mental Status Exam Mental Status Exam Patient Appearance: Well Grooomed Level of Consciousness: Awake Patient Behavior: Appropriate Mood Description: Calm, Constricted and Anxious Affect Description: Anxious Patient Cognition Impaired: No Ability to Follow Directions: Fair Speech Pattern: Clear Memory Description: Intact Hallucinations: None Delusions: Not Present Thought Content: positive for Intact, positive for Circumstantial, negative for Suicidal Ideation and negative for Homicidal Ideation Depressive Symptoms: Increased Irritability and Low Self Esteem Judgement: Fair Diagnostics Vital Signs (24Hr): Vital Signs - 24 hr 09/13/20 20:20 09/14/20 06:40 Temperature 98.6 F 97.4 F Pulse Rate 80 69 Respiratory Rate 16 Blood Pressure 140/95 H 110/65 Pulse Oximetry 98 Body Mass Index 19.6 Labs Results: 09/09/20 11:49 09/13/20 07:36 Labs: Laboratory Results - last 48 hr 09/12/20 09/13/20 17:33 07:36 Sodium 129 L 134 L Potassium 4.5 3.9 Chloride 93 L 95 L Carbon Dioxide 28 34 H Anion Gap 13 9 L BUN 10 Creatinine 0.65 Estim Creat Clear Calc 66.0 Estimated GFR > 60 Random Glucose 108 Calcium 9.4 Total Bilirubin 0.4 AST 27 ALT 13 Alkaline Phosphatase 81 Total Protein 7.2 Albumin 4.2 Imaging Radiology Impressions: ITS Impressions Head CT 09/09/20 15:19 IMPRESSION: No acute intracranial pathology. Medications Medications Current Medications Generic Name Dose Route Start Last Admin Trade Name Freq PRN Reason Stop Dose Admin Acetaminophen 650 mg 09/10/20 19:32 09/14/20 16:37 Acetaminophen 325 Mg Tablet PO 650 mg Q6H PRN Administration Headache/Pain Mild Scale (1-3) Al Hydroxide/Mg Hydroxide 30 ml 09/10/20 19:32 Magnesium Hydrox/Alum Hydrox 30 Ml Oral.Susp PO Q6H PRN Heartburn/Nausea Fluoxetine HCl 40 mg 09/12/20 09:00 09/14/20 08:27 Fluoxetine Hcl 20 Mg Capsule PO 40 mg DAILY SARA Administration Folic Acid 1 mg 09/11/20 17:29 09/14/20 08:27 Folic Acid 1 Mg Tablet PO 1 mg DAILY SARA Administration Gabapentin 300 mg 09/11/20 21:00 09/14/20 14:50 Gabapentin 300 Mg Capsule PO 300 mg TID SARA Administration Hydroxyzine HCl 25 mg 09/10/20 19:32 09/10/20 20:49 Hydroxyzine Hcl 25 Mg Tablet PO 25 mg BEDTIME PRN Administration Anxiety Loperamide HCl 2 mg 09/11/20 16:39 09/11/20 21:36 Loperamide Hcl 2 Mg Capsule PO 2 mg Q4H PRN Administration Loose Stool Lorazepam 1 mg 09/10/20 22:19 09/12/20 22:15 Lorazepam 1 Mg Tablet PO 1 mg Q4H PRN Administration Alcohol Withdrawal Magnesium Hydroxide 30 ml 09/10/20 19:32 Milk Of Magnesia 30 Ml Oral.Susp PO DAILY PRN Constipation Omeprazole 40 mg 09/10/20 06:30 09/14/20 06:39 Omeprazole 40 Mg Capsule.Dr PO 40 mg DAILY@0630 SARA Administration Thiamine HCl 100 mg 09/11/20 17:30 09/14/20 08:27 Thiamine Hcl 100 Mg Tablet PO 100 mg DAILY SARA Administration Trazodone HCl 50 mg 09/10/20 19:32 09/13/20 20:12 Trazodone Hcl 50 Mg Tablet PO 50 mg BEDTIME PRN Administration Insomnia Allergies Allergies Allergy/AdvReac Type Severity Reaction Status Date / Time No Known Allergies Allergy Verified 09/09/20 11:37 Assessment & Plan Assessment & Plan (1) Alcohol use disorder, moderate, dependence: Status: Acute Code(s): F10.20 - Alcohol dependence, uncomplicated (2) MDD (major depressive disorder), recurrent episode, moderate: Status: Acute Code(s): F33.1 - Major depressive disorder, recurrent, moderate Assessment and Plan: CT CIWA and ativan prn CT Tx plan unchanged Discuss antidpressant augmentation with provider tomorrow Greater than 50% of the session was spent on counseling and/or coordination of care Patient educated on: diagnosis, medication risk/benefits and substance abuse Informed Consent: further education needed Reason for contiued inpatient stay Substantial Risk for: inability to function and rapid decompensation
[2020-09-14] MEDS: traZODone HCL 50 MG TABLET PO (20:37)
[2020-09-15] MEDS: Omeprazole 40 MG CAPSULE.DR PO (06:03)
[2020-09-15 06:15] VITALS: BP 123/69; PULSE 68; RESP 16; TEMP 36.4; O2SAT 97
[2020-09-15] MEDS: FLUoxetine HCl 20 MG CAPSULE 40 MG PO (08:16)
[2020-09-15] MEDS: Folic Acid 1 MG TABLET PO (08:16)
[2020-09-15] MEDS: Gabapentin 300 MG CAPSULE PO ×3 (08:16→19:56)
[2020-09-15] MEDS: Thiamine HCL 100 MG TABLET PO (08:16)
--- NOTE | 2020-09-15 15:33 | HO.PSYCHPN ---
Subjective Subjective Date of Service: 09/15/20 Reason For Visit: SUICIDAL IDEATION Interim History: Yamel reports that she is sleeping and eating better. She reports mood is stable. She continues to denied alcohol use despite her BAL on admission and recent section 35. She denies any need for treatment for alcohol dependence. She denies SI/HI. She is worried about housing. We discussed again choice of going to residential substance use treatment, which today she was more agreeable to do. Medication Compliance: Yes Side effects from medications: No Review of Systems Review of Systems Yes all other systems are reviewed and are negative Constitutional: Reports as per HPI and Reports no additional constitutional complaints Eyes: Reports as per HPI and Reports no additional eye complaints Reports system reviewed and no additional complaints, except as documented and Reports as per HPI Cardiovascular: Reports as per HPI, Reports no additional cardiovascular complaints, Denies chest pain, Denies syncope, Denies palpitations, Denies dyspnea and Denies dyspnea on exertion Respiratory: Reports as per HPI, Reports no additional respiratory complaints, Denies chest congestion, Denies cough, Denies dyspnea and Denies dyspnea on exertion Gastrointestinal: Reports as per HPI, Reports no additional gastrointestinal complaints, Denies constipation and Reports diarrhea Musculoskeletal: Denies no additional musculoskeletal complaints and Reports as per HPI Reports system reviewed and no additional complaints, except as documented, Reports as per HPI and Denies syncope Endocrine: Denies palpitations Mental Status Exam Mental Status Exam Narrative: Appearance: casually groomed, fair hygiene, in NAD Behavior: calm, cooperative Psychomotor: no agitation or retardation noted Speech: clear, normal rate/rhythm/volume, spontaneous TP: tangential TC: no signs of psychosis, some suspiciousness towards past roommate, wanting to find housing Mood: depressed Affect:constricted SI:denies HI:denies AH/VH:denies Delusions:some paranoia towards roommate and other family members Insight/judgment:poor x 2. Memory/cog: alert, oriented x 3. MOCA on 09/12/2020, most difficulty with serial seven, placing hand on clock. Diagnostics Vital Signs (24Hr): Vital Signs - 24 hr 09/14/20 16:20 09/15/20 06:15 Temperature 98.0 F 97.6 F Pulse Rate 73 68 Respiratory Rate 16 Blood Pressure 143/84 H 123/69 Pulse Oximetry 97 Body Mass Index 19.6 Labs Results: 09/09/20 11:49 09/13/20 07:36 Imaging Radiology Impressions: ITS Impressions Head CT 09/09/20 15:19 IMPRESSION: No acute intracranial pathology. Medications Medications Current Medications Generic Name Dose Route Start Last Admin Trade Name Freq PRN Reason Stop Dose Admin Acetaminophen 650 mg 09/10/20 19:32 09/14/20 16:37 Acetaminophen 325 Mg Tablet PO 650 mg Q6H PRN Administration Headache/Pain Mild Scale (1-3) Al Hydroxide/Mg Hydroxide 30 ml 09/10/20 19:32 Magnesium Hydrox/Alum Hydrox 30 Ml Oral.Susp PO Q6H PRN Heartburn/Nausea Fluoxetine HCl 40 mg 09/12/20 09:00 09/15/20 08:16 Fluoxetine Hcl 20 Mg Capsule PO 40 mg DAILY SARA Administration Folic Acid 1 mg 09/11/20 17:29 09/15/20 08:16 Folic Acid 1 Mg Tablet PO 1 mg DAILY SARA Administration Gabapentin 300 mg 09/11/20 21:00 09/15/20 14:10 Gabapentin 300 Mg Capsule PO 300 mg TID SARA Administration Hydroxyzine HCl 25 mg 09/10/20 19:32 09/10/20 20:49 Hydroxyzine Hcl 25 Mg Tablet PO 25 mg BEDTIME PRN Administration Anxiety Loperamide HCl 2 mg 09/11/20 16:39 09/11/20 21:36 Loperamide Hcl 2 Mg Capsule PO 2 mg Q4H PRN Administration Loose Stool Lorazepam 1 mg 09/10/20 22:19 09/12/20 22:15 Lorazepam 1 Mg Tablet PO 1 mg Q4H PRN Administration Alcohol Withdrawal Magnesium Hydroxide 30 ml 09/10/20 19:32 Milk Of Magnesia 30 Ml Oral.Susp PO DAILY PRN Constipation Omeprazole 40 mg 09/10/20 06:30 09/15/20 06:03 Omeprazole 40 Mg Capsule.Dr PO 40 mg DAILY@0630 SARA Administration Thiamine HCl 100 mg 09/11/20 17:30 09/15/20 08:16 Thiamine Hcl 100 Mg Tablet PO 100 mg DAILY SARA Administration Trazodone HCl 50 mg 09/10/20 19:32 09/14/20 20:37 Trazodone Hcl 50 Mg Tablet PO 50 mg BEDTIME PRN Administration Insomnia Allergies Allergies Allergy/AdvReac Type Severity Reaction Status Date / Time No Known Allergies Allergy Verified 09/09/20 11:37 Assessment & Plan Assessment & Plan (1) Alcohol use disorder, moderate, dependence: Status: Acute Code(s): F10.20 - Alcohol dependence, uncomplicated (2) MDD (major depressive disorder), recurrent episode, moderate: Status: Acute Code(s): F33.1 - Major depressive disorder, recurrent, moderate Assessment and Plan: CT CIWA and ativan prn CT Tx plan unchanged Discuss antidpressant augmentation with provider tomorrow Greater than 50% of the session was spent on counseling and/or coordination of care Reason for contiued inpatient stay Substantial Risk for: harm to self
[2020-09-15] MEDS: ARIPiprazole 2 MG TABLET PO (16:32)
[2020-09-15] MEDS: Acetaminophen 325 MG TABLET 650 MG PO (16:32)
[2020-09-15 16:35] VITALS: BP 133/79; PULSE 78; TEMP 36.8
[2020-09-15] MEDS: traZODone HCL 50 MG TABLET PO (19:56)
[2020-09-16] MEDS: Omeprazole 40 MG CAPSULE.DR PO (06:19)
[2020-09-16 06:25] VITALS: BP 97/71; PULSE 74; RESP 16; TEMP 36.8; O2SAT 99
[2020-09-16] MEDS: FLUoxetine HCl 20 MG CAPSULE 40 MG PO (08:53)
[2020-09-16] MEDS: Thiamine HCL 100 MG TABLET PO (08:53)
[2020-09-16] MEDS: Folic Acid 1 MG TABLET PO (08:53)
[2020-09-16] MEDS: Gabapentin 300 MG CAPSULE PO (08:53)
[2020-09-16] MEDS: ARIPiprazole 2 MG TABLET PO (08:53)
--- NOTE | 2020-09-16 14:57 | P.DS_ITS ---
DS: Providers Provider Date of Service: 09/16/20 Date of admission: 09/10/20 19:30 Primary care physician: Tres Lamas MD DS: Diagnosis Discharge Diagnosis (1) Alcohol use disorder, moderate, dependence: Status: Acute (2) MDD (major depressive disorder), recurrent episode, moderate: Status: Acute DS: Medications Discharge Medications Home Medications: Previous Rx's Medication Instructions Recorded aripiprazole [Abilify] 2 mg PO DAILY 30 Days #30 tab 09/16/20 fluoxetine 40 mg PO DAILY 30 Days #60 cap 09/16/20 folic acid 1 mg PO DAILY 30 Days #30 tab 09/16/20 omeprazole 40 mg PO DAILY@0630 30 Days #30 cap 09/16/20 thiamine mononitrate (vit B1) 100 mg PO DAILY 30 Days #30 tab 09/16/20 trazodone 50 mg PO BEDTIME PRN 30 Days #30 09/16/20 tab Discharge Plan Discharge Patient Disposition: Home, Self-Care Referrals: YANIV WESTBROOK, THERAPIST [Other] - 09/19/20 10:00 am (TELEHEALTH) CHRISTINE GILBERT [Other] - 10/15/20 8:40 am (TELEHEALTH) CHRISTINE RODRIGUEZ, PSYCHIATRY [Other] - 10/29/20 10:40 am (TELEHEALTH) Tres Lamas MD [Primary Care Provider] - 09/26/20 3:20 pm (OFFICE VISIT) Discharge Medications: New trazodone 50 mg Tablet 50 mg PO BEDTIME PRN (Reason: Insomnia) 30 Days Qty: 30 RF: 0 omeprazole 40 mg Capsule,Delayed Release(Dr/Ec) 40 mg PO DAILY@30 30 Days Qty: 30 RF: 0 folic acid 1 mg Tablet 1 mg PO DAILY 30 Days Qty: 30 RF: 0 fluoxetine 20 mg Capsule 40 mg PO DAILY 30 Days Qty: 60 RF: 0 aripiprazole [Abilify] 2 mg Tablet 2 mg PO DAILY 30 Days Qty: 30 RF: 0 thiamine mononitrate (vit B1) 100 mg Tablet 100 mg PO DAILY 30 Days Qty: 30 RF: 0 Discontinued omeprazole 40 mg Capsule,Delayed Release(Dr/Ec) 40 mg PO DAILY RF: 0 fluoxetine 60 mg Tablet 60 mg PO DAILY RF: 0 Discharge Orders: Discharge Order (Routine); Ordered 09/16/20 Ordered By: Catalina Thomas Diet: regular diet Activity on Discharge: As tolerated Stand Alone Forms: Patient Portal Discharge page, Community Support Care Plan Goals: 1. follow up with referrals Health Concerns: 1. follow up with PCP Plan of Treatment: 1. Take medications as prescribed. Mental Status Exam Mental Status Exam Narrative: Appearance: casually groomed, fair hygiene, in NAD Behavior: calm, cooperative Psychomotor: no agitation or retardation noted Speech: clear, normal rate/rhythm/volume, spontaneous TP: tangential TC: no signs of psychosis, some suspiciousness towards past roommate, wanting to find housing Mood: good Affect:brighter, but constricted in range SI:denies HI:denies AH/VH:denies Delusions:some paranoia towards roommate and other family members Insight/judgment:poor x 2. Memory/cog: alert, oriented x 3. MOCA on 09/12/2020, most difficulty with serial seven, placing hand on clock. Data Data Completed and Pending Completed studies during hospitalization [Text1]: 09/09/20 09/10/20 09/11/20 14:24 01:59 13:15 Sodium 131 L Potassium 6.0 H* Chloride 95 L Carbon Dioxide 24 Anion Gap 18 BUN 11 Creatinine 0.67 Estim Creat Clear Calc 63.9 Estimated GFR > 60 Random Glucose 108 Estimat Average Glucose Hemoglobin A1c % Calcium 9.8 Magnesium Total Bilirubin 0.4 AST 34 H D ALT 15 Alkaline Phosphatase 85 Troponin I High Sens < 3.5 Total Protein 7.8 Albumin 4.5 Triglycerides Cholesterol LDL Cholesterol, Calc HDL Cholesterol Vitamin B12 Methylmalonic Acid Folate TSH COVID-19 ([facility]) Negative COVID-19 Clin Com See Note 09/11/20 09/12/20 09/12/20 15:11 08:47 08:47 Sodium Potassium 4.6 D Chloride Carbon Dioxide Anion Gap BUN Creatinine Estim Creat Clear Calc Estimated GFR Random Glucose Estimat Average Glucose 80 Hemoglobin A1c % 4.4 Calcium Magnesium 1.9 Total Bilirubin AST ALT Alkaline Phosphatase Troponin I High Sens Total Protein Albumin Triglycerides 99 Cholesterol 263 LDL Cholesterol, Calc 189 HDL Cholesterol 55 Vitamin B12 Methylmalonic Acid Folate TSH COVID-19 ([facility]) COVID-19 Clin Com 09/12/20 09/12/20 09/12/20 08:47 08:47 17:33 Sodium 129 L Potassium 4.5 Chloride 93 L Carbon Dioxide 28 Anion Gap 13 BUN 10 Creatinine 0.65 Estim Creat Clear Calc 66.0 Estimated GFR > 60 Random Glucose 108 Estimat Average Glucose Hemoglobin A1c % Calcium 9.4 Magnesium Total Bilirubin 0.4 AST 27 ALT 13 Alkaline Phosphatase 81 Troponin I High Sens Total Protein 7.2 Albumin 4.2 Triglycerides Cholesterol LDL Cholesterol, Calc HDL Cholesterol Vitamin B12 291 Methylmalonic Acid Folate > 20.0 TSH 0.94 COVID-19 ([facility]) COVID-19 Clin Com 09/13/20 09/13/20 07:36 07:39 Sodium 134 L Potassium 3.9 Chloride 95 L Carbon Dioxide 34 H Anion Gap 9 L BUN Creatinine Estim Creat Clear Calc Estimated GFR Random Glucose Estimat Average Glucose Hemoglobin A1c % Calcium Magnesium Total Bilirubin AST ALT Alkaline Phosphatase Troponin I High Sens Total Protein Albumin Triglycerides Cholesterol LDL Cholesterol, Calc HDL Cholesterol Vitamin B12 Methylmalonic Acid Pending Folate TSH COVID-19 ([facility]) COVID-19 Clin Com Imaging Diagnostic Imaging Impressions Head CT 09/09/20 15:19 IMPRESSION: No acute intracranial pathology. DS: Summary Hospital Course Hospital Course: Ms. Olea is a 65 year-old woman with hx of MDD and alcohol dependence. She was brought to [facility] ED by sister on 09/09/2020 due to increase depression, suicidal ideation, hopeless/helpeless in context of psychosocial stressors including not having stable place to live. In the ED, her utox was positive for benzodiazepines. Her BAL was 56. Ms. Olea was recently discharged from [facility] in 07/2020 after suicide attempt with carbon monoxide. Pt reports that suicide attempt was impulsive, that she went to her car and turn it on but quickly regret it but couldn't stop the car so she pulled back and broke garage door. Per crisis report, pt had sent messages to sister on 08/24, 09/07 and 09/09 reporting suicidal ideation. On the unit, pt denies alcohol use or that it is a problem, even though she was recently sectioned 35 in April of 2020 and per sister, pt has extensive alcohol history since pt was 18. Pt reports that for 5 years she lived in apartment that she rented but was asked to leave. She can't explain reasons for eviction from apartment. She reports she had roommate at the time and she thinks roommate lied about her to her landlord. Pt on unit states that she is depressed, hopeless but denies suicidal ideation. She reports her main concern at this time is housing. She reports fair sleep. She reports fair appetite. She appears somewhat suspicious about a number of people in her life including most of her siblings, except for one sister, her former roommate, who pt reports thinks put something in her car/gas to brake it. Pt appears with some memory difficulties as she struggled with timeline of events leading to this admission and previous one. She denies hx of VH/AH. Past Psychiatric History: Inpatient: [place] 07/2020 OP: none Past medication trial: prozac Suicide attempt: attempted carbon monoxide poisoning 07/2020 but stopped. HOSPITAL COURSE On the unit, Ms. Olea was placed on 15 minutes checks for safety. She presented with flat affect. She reports feeling worried about current psychosocial stresors mainly lack of housing. She denied suicidal or homicidal ideation throughout the hospital stay. She minimize the use of alcohol, did not think it has ever been a problem despite her family doing a section 35 in April 2020. She reports fair sleep. She reports poor appetite. She denies hx of VH/AH. She provided very little details about past suicide attempt. It was difficult to obtain a linear and coherent story of recent events as well as past history. There was some question in terms of possible underlying neurocognitive disorder. MOCA was completed on 09/12/2020 pt scored 28/30 most difficulty on serial 7 and placing hand of clock, otherwise it was unremarkable. CT scan of the head on admission did show atrophy with prominence of the ventricles and the sulci and hypodensity of the periventricular white matter due to chronic small vessel ischemic disease . We discussed risks, benefits and alternative treatment options. Pt initially had requested a different antidepressant as she has been on prozac for several years. However, she after reported that it has been beneficial and agreed to continue it. Abilify low dose was added to boost effect of antidepressant. There were some signs of paranoia towards past roommate and family members. But pt did not appear internally preoccupied. Her affect gradually brighten, although continued to present with constricted range but in no distressed. She was visible in the unit and attended assigned groups. She reports sleeping and eating well. She was seen socializing with select peers. There were no incidences of disruptive behaviors nor use of restraints. Collateral information was gathered from her sister, Nighat who reported that pt has had difficult personality for most of her life, affecting her relationship with other siblings. Nighat also reported that her alcohol use played a role in family not being close to her. Nighat notes some paranoia with past roommate as well but extend of it is unclear. At time of discharge, Nighat agreed that pt is in much improve conditions, brighter affect and denies any safety concerns. Status at Discharge Cognitive/behavioral status at discharge: Pt denies SI/HI. She reports less symptoms of depression. No aggression towards self or others. Functional status at discharge: independent ambulation Overall status at discharge: patient is progressing back to baseline Time Spent with Patient Time attestation: Total time spent providing and/or coordinating discharge services:
[2020-09-18 17:26] LABS: Methylmalonic Acid 285 nmol/L (87-318)
== END 2020-09-16 15:48 | disposition home or self-care (01) | DRG 751 ==
LOC: HO.ED 09-10 19:40 → HO.PM5 09-10 19:42
PROVIDERS: Nurse Practitioner Family; Physician Assistant; Admitting Provider Psychiatry & Neurology Psychiatry; Emergency Provider Emergency Medicine Emergency Medical Services; PCP Family Medicine; Visit Provider Social Worker
DX: F33.1 Major depressive disorder, recurrent, moderate (principal); R45.851 Suicidal ideations; F10.239 Alcohol dependence with withdrawal, unspecified; Z20.822 Contact with and (suspected) exposure to COVID-19; Z79.899 Other long term (current) drug therapy
CPT/HCPCS: 36415; 70450; 80051; 80053; 80061; 80076; 80307; 80320; 81003; 82607; 82746; 83036; 83735; 83921; 84132; 84443; 84484; 85025; 87635; 93005; 99285